=== PATIENT | male | born 1940 | race Caucasian/White ===

== ENCOUNTER 2017-03-16 13:30 | Inpatient (IN) | payer MEDICARE, OTHER ==
[2017-03-16] MEDS ORDERED: EPINEPHrine 1:10,000 1 MG/10 ML Syringe ONE (13:33)
[2017-03-16] MEDS ORDERED: Sodium Chloride 0.9% 1,000 ML IV ONE (13:55)
[2017-03-16] MEDS ORDERED: Sodium Chloride 0.9% 10 ML Syringe FLUSH PRN (13:55)
[2017-03-16 14:25] LABS: SODIUM,NA 134 mmol/L (138-146)
[2017-03-16 14:26] LABS: CHLORIDE,CL 96 mmol/L (98-109)
--- NOTE | 2017-03-16 14:31 | EDM.PDOC ---
ED HPI GENERAL MEDICAL PROBLEM - General Chief Complaint: CPR in Progress Stated Complaint: CODE BLUE Time Seen by Provider: 03/16/17 13:30 Source of Information: Reports: Patient, EMS, EMS Notes Reviewed, Family, RN, RN Notes Reviewed History Limitations: Reports: No Limitations - History of Present Illness INITIAL COMMENTS - FREE TEXT/NARRATIVE: Patient is brought to the ED at [facility] via EMS due to unresponsiveness and CPR in progress. According to patient's , her was working underneath the kitchen sink when he called out to her to help him up off the floor. When the arrive, she was unable to assist the patient up to his feet, so the patient laid on the floor for about one hour. The stated she tried to convince her to call EMS but he had refused twice. She states she finally ignored his request and call 911. Upon EMS arrival, patient was responsive and able to speak. EMS states once they started loading patient into the rig, patient became unresponsive. CPR initiated. Upon arrival, patient was unresponsive, pupils fixed and dilated, no responsive to any stimuli, no spontaneous breathing. Patient did not have a pulse, epi given with good results. Onset: Today Onset Date: 03/16/17 Onset Time: 11:45 ED ROS GENERAL - Review of Systems Review Of Systems: ROS reveals no pertinent complaints other than HPI. ED EXAM, CPR - Physical Exam Exam: See Below Limited By: Altered Mental Status, Unresponsive General Appearance: Obtunded, Severe Distress Eye Exam: Bilateral Eye: Abnormal Pupil (both pupils fixed and dilated) Head: Atraumatic, Normocephalic Respiratory Chest: No Accessory Muscle Use, Respiratory Distress Cardiovascular: Absent Heart Sounds, Pulse with Compression, CPR In Progress 0: Right Carotid, Left Carotid Extremities: Mottled, Pallor Neurological: Unresponsive Skin Exam: Cool, Cyanosis EKG INTERPRETATION EKG Date: 03/16/17 Time: 13:43 Rhythm: A-Flutter Rate (Beats/Min): 128 Wheeler: Normal P-Wave: Absent QRS: Wide ST-T: Elevated QT: Normal IA/PQ Interval: Absent Comparison: NA - No Prior EKG EKG Interpretation Comments: 1. Atrial flutter/Tachycardia with RVR with aberrant conduction or ventricular premature complexes 2. Moderate IVCD 3. ST elevation, probably early repolarization 4. Nonspecific ST & T abnormality Course - Orders/Labs/Meds Orders: Active Orders 24 hr Category Date Time Status EKG 12 Lead [EKG Documentation Completion] [RC] STAT Care 03/16/17 13:55 Active Insert Grijalva Catheter [Insert Urinary Catheter] [OM.PC] Care 03/16/17 14:00 Ordered Q24H Intubation [RT Airway Intubation] [RC] ASDIRECTED Care 03/16/17 13:54 Active RT Ventilator, Adult [RC] ASDIRECTED Care 03/16/17 14:21 Active Urinary Catheter Assessment [RC] ASDIRECTED Care 03/16/17 13:56 Active Chest 1V Frontal [CR] Routine Exams 03/16/17 13:40 Taken Head wo Cont [CT] Stat Exams 03/16/17 13:53 Taken Sodium Chloride 0.9% [Saline Flush] Med 03/16/17 13:55 Active 10 ml FLUSH ASDIRECTED PRN Peripheral IV Insertion Adult [OM.PC] Routine Oth 03/16/17 13:55 Ordered Medication Orders Sodium Chloride (Saline Flush) 10 ml FLUSH ASDIRECTED PRN PRN Reason: Keep Vein Open Labs: Laboratory Tests 03/16/17 03/16/17 03/16/17 Range/Units 13:33 13:33 13:33 WBC 11.1 H (4.0-10.0) x10^3/uL RBC 5.29 (4.5-6.0) x10^6/uL Hgb 16.8 (14.0-18.0) g/dL Hct 48.2 (40.0-52.0) % MCV 91.1 (78.0-93.0) fL MCH 31.8 (26.0-32.0) pg MCHC 34.9 (32.0-36.0) g/dL RDW Coeff of Kavita 12.2 (10.0-15.0) % Plt Count 269 (130-400) x10^3/uL Neut % (Auto) 69.8 (50.0-80.0) % Lymph % (Auto) 23.6 L (25.0-50.0) % Loving % (Auto) 5.7 (2.0-11.0) % Eos % (Auto) 0.7 (0.0-4.0) % Baso % (Auto) 0.2 (0.2-1.2) % PT 21.5 H (9.8-11.8) SEC INR 2.0 (2.0-3.5) APTT 30.1 (22.0-34.0) SEC D-Dimer, Quantitative 0.56 (<=0.58) mg/LFEU POC ABG pH (7.35-7.45) POC ABG pCO2 (35-45) mmHG POC ABG pO2 (80-105) mmHG POC ABG HCO3 (22-26) mmol/L POC ABG Total CO2 (23-27) mmol/L POC ABG O2 Sat (95-98) % POC ABG Base Excess (-2-3) mmol/L POC FiO2 POC Sodium (138-146) mmol/L Sodium 134 L (138-146) mmol/L POC Potassium (3.5-4.9) mmol/L Potassium 4.3 (3.5-4.9) mmol/L POC Chloride (98-109) mmol/L Chloride 96 L (98-109) mmol/L Carbon Dioxide 26 (24-29) mmol/L POC Total CO2 (24-29) mmol/L POC BUN (8-26) mg/dL BUN 9 (8-26) mg/dL Creatinine 0.7 (0.6-1.3) mg/dL POC Creatinine (0.6-1.3) mg/dL Est Cr Clr Drug Dosing TNP Estimated GFR (MDRD) > 60 Glucose 183 H (70-105) mg/dL POC Glucose (70-105) mg/dL Lactic Acid (0.4-2.0) mmol/L Calcium 8.6 (8.5-10.1) mg/dL Corrected Calcium 8.44 L (8.5-10.1) mg/dL Total Bilirubin 0.7 (0.2-1.0) mg/dL AST 27 (15-37) U/L ALT 28 (16-63) U/L Alkaline Phosphatase 64 (46-116) U/L Creatine Kinase 125 (39-308) U/L Creatine Kinase Index 1.9 (0.0-4.0) % CK-MB (CK-2) 2.4 (0.0-3.6) ng/mL POC Troponin I (0.00-0.08) ng/mL Troponin I Cancelled C-Reactive Protein < 0.2 (<=0.9) mg/dL Total Protein 8.1 (6.4-8.2) g/dL Albumin 4.2 (3.4-5.0) g/dL Globulin 3.9 g/dL Albumin/Globulin Ratio 1.08 POC Result Comm 03/16/17 03/16/17 03/16/17 Range/Units 13:33 13:41 13:42 WBC (4.0-10.0) x10^3/uL RBC (4.5-6.0) x10^6/uL Hgb (14.0-18.0) g/dL Hct (40.0-52.0) % MCV (78.0-93.0) fL MCH (26.0-32.0) pg MCHC (32.0-36.0) g/dL RDW Coeff of Kavita (10.0-15.0) % Plt Count (130-400) x10^3/uL Neut % (Auto) (50.0-80.0) % Lymph % (Auto) (25.0-50.0) % Loving % (Auto) (2.0-11.0) % Eos % (Auto) (0.0-4.0) % Baso % (Auto) (0.2-1.2) % PT (9.8-11.8) SEC INR (2.0-3.5) APTT (22.0-34.0) SEC D-Dimer, Quantitative (<=0.58) mg/LFEU POC ABG pH (7.35-7.45) POC ABG pCO2 (35-45) mmHG POC ABG pO2 (80-105) mmHG POC ABG HCO3 (22-26) mmol/L POC ABG Total CO2 (23-27) mmol/L POC ABG O2 Sat (95-98) % POC ABG Base Excess (-2-3) mmol/L POC FiO2 POC Sodium 134 L (138-146) mmol/L Sodium (138-146) mmol/L POC Potassium 4.3 (3.5-4.9) mmol/L Potassium (3.5-4.9) mmol/L POC Chloride 96 L (98-109) mmol/L Chloride (98-109) mmol/L Carbon Dioxide (24-29) mmol/L POC Total CO2 26 (24-29) mmol/L POC BUN 9 (8-26) mg/dL BUN (8-26) mg/dL Creatinine (0.6-1.3) mg/dL POC Creatinine 0.7 (0.6-1.3) mg/dL Est Cr Clr Drug Dosing Estimated GFR (MDRD) Glucose (70-105) mg/dL POC Glucose 183 H (70-105) mg/dL Lactic Acid 3.3 H (0.4-2.0) mmol/L Calcium (8.5-10.1) mg/dL Corrected Calcium (8.5-10.1) mg/dL Total Bilirubin (0.2-1.0) mg/dL AST (15-37) U/L ALT (16-63) U/L Alkaline Phosphatase (46-116) U/L Creatine Kinase (39-308) U/L Creatine Kinase Index (0.0-4.0) % CK-MB (CK-2) (0.0-3.6) ng/mL POC Troponin I 0.01 (0.00-0.08) ng/mL Troponin I C-Reactive Protein (<=0.9) mg/dL Total Protein (6.4-8.2) g/dL Albumin (3.4-5.0) g/dL Globulin g/dL Albumin/Globulin Ratio POC Result Comm 03/16/17 Range/Units 13:54 WBC (4.0-10.0) x10^3/uL RBC (4.5-6.0) x10^6/uL Hgb (14.0-18.0) g/dL Hct (40.0-52.0) % MCV (78.0-93.0) fL MCH (26.0-32.0) pg MCHC (32.0-36.0) g/dL RDW Coeff of Kavita (10.0-15.0) % Plt Count (130-400) x10^3/uL Neut % (Auto) (50.0-80.0) % Lymph % (Auto) (25.0-50.0) % Loving % (Auto) (2.0-11.0) % Eos % (Auto) (0.0-4.0) % Baso % (Auto) (0.2-1.2) % PT (9.8-11.8) SEC INR (2.0-3.5) APTT (22.0-34.0) SEC D-Dimer, Quantitative (<=0.58) mg/LFEU POC ABG pH 7.272 L* (7.35-7.45) POC ABG pCO2 51 H (35-45) mmHG POC ABG pO2 337 H (80-105) mmHG POC ABG HCO3 24 (22-26) mmol/L POC ABG Total CO2 25 (23-27) mmol/L POC ABG O2 Sat 100 H (95-98) % POC ABG Base Excess -3 L (-2-3) mmol/L POC FiO2 0.90 POC Sodium (138-146) mmol/L Sodium (138-146) mmol/L POC Potassium (3.5-4.9) mmol/L Potassium (3.5-4.9) mmol/L POC Chloride (98-109) mmol/L Chloride (98-109) mmol/L Carbon Dioxide (24-29) mmol/L POC Total CO2 (24-29) mmol/L POC BUN (8-26) mg/dL BUN (8-26) mg/dL Creatinine (0.6-1.3) mg/dL POC Creatinine (0.6-1.3) mg/dL Est Cr Clr Drug Dosing Estimated GFR (MDRD) Glucose (70-105) mg/dL POC Glucose (70-105) mg/dL Lactic Acid (0.4-2.0) mmol/L Calcium (8.5-10.1) mg/dL Corrected Calcium (8.5-10.1) mg/dL Total Bilirubin (0.2-1.0) mg/dL AST (15-37) U/L ALT (16-63) U/L Alkaline Phosphatase (46-116) U/L Creatine Kinase (39-308) U/L Creatine Kinase Index (0.0-4.0) % CK-MB (CK-2) (0.0-3.6) ng/mL POC Troponin I (0.00-0.08) ng/mL Troponin I C-Reactive Protein (<=0.9) mg/dL Total Protein (6.4-8.2) g/dL Albumin (3.4-5.0) g/dL Globulin g/dL Albumin/Globulin Ratio POC Result Comm Called critical res Meds: Medications Generic Name Dose Route Start Last Admin Trade Name Freq PRN Reason Stop Dose Admin Sodium Chloride 10 ml 03/16/17 13:55 Saline Flush FLUSH ASDIRECTED PRN Keep Vein Open Discontinued Medications Generic Name Dose Route Start Last Admin Trade Name Freq PRN Reason Stop Dose Admin Sodium Chloride 1,000 mls @ 1,000 mls/hr 03/16/17 13:55 Normal Saline IV 03/16/17 14:54 ONETIME ONE - Radiology Interpretation Free Text/Narrative:: CXR: Satisfactory ET tube position, though the tube could be safely pulled back approximately 1cm CT Head: 1. Probable hypertensive posterior fossa cerebellar intraparenchymal hemorrhage with intraventricular and subaracnoid extension. 2. Obstructive Hydrocephalus 3. Upward Transtentorial herniation 4. Secondary ischemic changes upon the posterior fossa vessels Departure - Departure Time of Disposition: 15:41 Disposition: Refer to Observation Condition: Critical Clinical Impression: Hemorrhage of brainstem with loss of consciousness, Obstructive hydrocephalus, Transtentorial herniation, Intraparenchymal hemorrhage of brain - Discharge Information ED Communication - ED Communication Date/Time Date: 03/16/17 Time Called: 14:48 - Discussed Case With (1) Discussed Case With (1): Inpatient Finisher Machine (Dr. Bird, Neurosurgeon, [facility]) - Conversation Summary Patient Aware of Amendments fo Care Plan: Yes Patient's POA/Guardian Aware of Amendments to Care Plan: Yes Summary Comment: Discussed case with Dr. Bird, Neurosurgeon. Patient is not a candidate for any neurological intervention due to extension of bleed into brainstem. - Problem List & Annotations (1) Hemorrhage of brainstem with loss of consciousness SNOMED Code(s): 15256183, 855493840 Code(s): S06.389A - CONTUS/LAC/HEM BRAINSTEM W LOC OF UNSP DURATION, INIT Status: Acute Priority: High Current Visit: Yes Onset Date: ~03/16/17 (2) Obstructive hydrocephalus SNOMED Code(s): 791014513, 888744200 Code(s): G91.1 - OBSTRUCTIVE HYDROCEPHALUS Status: Acute Priority: High Current Visit: Yes Onset Date: ~03/16/17 (3) Transtentorial herniation SNOMED Code(s): 359546718 Code(s): G93.5 - COMPRESSION OF BRAIN Status: Acute Priority: High Current Visit: Yes Onset Date: ~03/16/17 (4) Intraparenchymal hemorrhage of brain SNOMED Code(s): 135607994 Code(s): I61.9 - NONTRAUMATIC INTRACEREBRAL HEMORRHAGE, UNSPECIFIED Status : Acute Priority: High Current Visit: Yes Onset Date: ~03/16/17 - Problem List Review Problem List Initiated/Reviewed/Updated: Yes - My Orders Last 24 Hours: My Active Orders 03/16/17 13:40 Chest 1V Frontal [CR] Routine 03/16/17 13:53 Head wo Cont [CT] Stat 03/16/17 13:54 Intubation [RT Airway Intubation] [RC] ASDIRECTED 03/16/17 13:55 EKG 12 Lead [EKG Documentation Completion] [RC] STAT Sodium Chloride 0.9% [Saline Flush] 10 ml FLUSH ASDIRECTED PRN Peripheral IV Insertion Adult [OM.PC] Routine 03/16/17 13:56 Urinary Catheter Assessment [RC] ASDIRECTED 03/16/17 14:00 Insert Grijalva Catheter [Insert Urinary Catheter] [OM.PC] Q24H 03/16/17 14:21 RT Ventilator, Adult [RC] ASDIRECTED - Assessment/Plan Admission H&P: Please use this note as an admission H&P Last 24 Hours: My Active Orders 03/16/17 13:40 Chest 1V Frontal [CR] Routine 03/16/17 13:53 Head wo Cont [CT] Stat 03/16/17 13:54 Intubation [RT Airway Intubation] [RC] ASDIRECTED 03/16/17 13:55 EKG 12 Lead [EKG Documentation Completion] [RC] STAT Sodium Chloride 0.9% [Saline Flush] 10 ml FLUSH ASDIRECTED PRN Peripheral IV Insertion Adult [OM.PC] Routine 03/16/17 13:56 Urinary Catheter Assessment [RC] ASDIRECTED 03/16/17 14:00 Insert Grijalva Catheter [Insert Urinary Catheter] [OM.PC] Q24H 03/16/17 14:21 RT Ventilator, Adult [RC] ASDIRECTED
[2017-03-16] MEDS ORDERED: Acetaminophen 650 MG Supp RECTAL PRN (16:54)
[2017-03-16] MEDS ORDERED: Atropine 1% Ophth Soln 5 ML BOTTLE SL PRN (16:54)
[2017-03-16] MEDS ORDERED: Ondansetron 4 MG/2 ML SDV IVPUSH PRN (16:54)
[2017-03-16] MEDS ORDERED: LORazepam 2 MG/ML SDV IV PRN (17:03)
[2017-03-16] MEDS ORDERED: Lidocaine 2% Viscous Solution 15 ML Cup PO PRN (17:03)
[2017-03-16] MEDS ORDERED: Morphine 10 MG/ML Syringe IV PRN (17:03)
--- NOTE | 2017-03-16 23:43 | PCM.HP ---
H&P History of Present Illness - General Date of Service: 03/16/17 Admit Problem/Dx: Admission Diagnosis/Problem Admission Diagnosis/Problem Intraparenchymal hemorrhage of brain Obstructive Hydrocephalus Transtentorial Hemorrhage Source of Information: EMS, EMS Notes Reviewed, Family, RN, RN Notes Reviewed History Limitations: Reports: Altered Mental Status - History of Present Illness Initial Comments - Free Text/Narative: Patient was brought to the emergency room at [facility] via EMS for a possible stroke. According to the patient's , the patient was underneath the kitchen sink trying to fix the plumbing, the states that her called out for help to get up off the floor. The states that she was unable to help her off the floor. She recommended to her that they should call 911 which the patient refused. The states that the patient sat on the kitchen floor for almost an hour before 911 was called. Upon arrival of EMS, the EMS personnel state the patient was alert and had equal hand grasp. The EMS personnel state that as they were loading the patient into the ambulance rig, the patient went unresponsive and respiratory arrested. CPR was started immediately. Upon arrival to the emergency room the patient was being bagged and manual chest compressions were being performed. The patient did not have a pulse upon arrival so one epinephrine was given with good success. The patient was intubated immediately. Once adequate airway was achieved CPR was stopped. The patient maintained a heart rate in the 60s and 70s but did have a low blood pressure in the 60s to 70s. A phone call was made to the neurosurgeon Dr Bird, at [facility] who reviewed the CAT scan of the brain. According to the neurosurgeon the patient had a posterior fossa infarct into the brainstem. The patient was also found to have obstructive hydrocephalus as well as tentorial hemorrhage. The neurosurgeon advised the patient was not a surgical candidate. Patient was therefore admitted to acute status at [facility]. Onset of Symptoms: Reports: Today Symptom Onset Date: 03/16/17 Symptom Onset Time: 11:45 - Related Data Allergies/Adverse Reactions: Allergies Allergy/AdvReac Type Severity Reaction Status Date / Time No Known Allergies Allergy Verified 03/16/17 18:11 Past Medical History - History Comment History Comment: Unable to obtain PMH as PCP office closed at time of this dictation Social & Family History - Family History Family Medical History: Noncontributory - Tobacco Use Smoking Status *Q: Never Smoker Tobacco Use Within Last Twelve Months: No Used Tobacco, but Quit: No - Living Situation & Occupation Living situation: Reports: , with Spouse Occupation: Retired H&P Review of Systems - Review of Systems: Review Of Systems: ROS reveals no pertinent complaints other than HPI. Exam - Exam Exam: See Below - Vital Signs Vital Signs: Last Vital Signs Temp 36.2 C 03/16/17 22:00 Pulse 59 L 03/16/17 22:00 Resp 18 03/16/17 22:00 BP 88/54 L 03/16/17 22:00 Pulse Ox 100 03/16/17 22:00 - Exam Quality Assessment: Supplemental Oxygen General: Other (Unresponsive on ventilator) HEENT: Abnormal Pupils (fixed and dilated) Lungs: Clear to Auscultation (on ventilator) Cardiovascular: Regular Rate, Regular Rhythm GI/Abdominal Exam: Soft, Non-Tender, Abnormal Bowel Sounds (Hypoactive) Extremities: Mottled Peripheral Pulses: 1+: Radial (L), Radial (R) Skin: Warm, Dry, Intact Neuro Extensive - Mental Status: No: Opens Eyes to Commands, Withdraws to Pain Neuro Extensive - Motor, Sensory, Reflexes: Abnormal Reflexes Physical Exam Comments:: Patient currently on ventilator and unresponsive. The patient does not withdraw to pain. The patient does not respond to obnoxious stimuli. The patient does not follow any commands. The patient's pupils are fixed and dilated. The patient does not have a gag response. The patient does have a spontaneous heart rate. The patient's respiratory status is being assisted by the ventilator. The patient is not on any sedation and has not been given any during his entire hospital course. - Patient Data Result Diagrams: 03/16/17 13:33 03/16/17 13:33 *Q Meaningful Use (ADM) - VTE *Q VTE Criteria *Q: Not Indicated due to patient's medical condition - Stroke *Q Stroke Criteria *Q: - AMI *Q AMI Criteria *Q: - Problem List (1) Hemorrhage of brainstem with loss of consciousness SNOMED Code(s): 97666989, 662630943 ICD Code: S06.389A - CONTUS/LAC/HEM BRAINSTEM W LOC OF UNSP DURATION, INIT Status: Acute Priority: High Current Visit: Yes Onset Date: ~03/16/17 (2) Obstructive hydrocephalus SNOMED Code(s): 020902904, 061519684 ICD Code: G91.1 - OBSTRUCTIVE HYDROCEPHALUS Status: Acute Priority: High Current Visit: Yes Onset Date: ~03/16/17 (3) Transtentorial herniation SNOMED Code(s): 155430658 ICD Code: G93.5 - COMPRESSION OF BRAIN Status: Acute Priority: High Current Visit: Yes Onset Date: ~03/16/17 (4) Intraparenchymal hemorrhage of brain SNOMED Code(s): 688679872 ICD Code: I61.9 - NONTRAUMATIC INTRACEREBRAL HEMORRHAGE, UNSPECIFIED Status : Acute Priority: High Current Visit: Yes Onset Date: ~03/16/17 (5) Syncope SNOMED Code(s): 428152318 ICD Code: R55 - SYNCOPE AND COLLAPSE Status: Acute Priority: Medium Current Visit: Yes Onset Date: ~03/16/17 Qualifiers: Syncope type: unspecified Qualified Code(s): R55 - Syncope and collapse Problem List Initiated/Reviewed/Updated: Yes Orders Last 24hrs: Active Orders 24 hr Category Date Time Status Patient Status [ADT] Routine ADT 03/16/17 16:55 Active Bedrest [RC] ASDIRECTED Care 03/16/17 16:55 Active Height and Weight [RC] UPON Care 03/16/17 16:55 Active Telemetry Monitoring [Cardiac Monitoring] [RC] 06,,14 Care 03/16/17 16:00 Active ,18,22,02 Turn and Reposition [RC] Q2H Care 03/16/17 16:56 Active Vital Signs [RC] 06,10,14,18,22,02 Care 03/16/17 16:54 Active Respiratory Care Assess and Treatment [CONS] Routine Cons 03/16/17 16:55 Active Nothing Per Oral Diet [DIET] Diet 03/16/17 Dinner Active BLOOD GAS ARTERIAL [BG] Routine Lab 03/17/17 05:11 Ordered Acetaminophen [Tylenol] Med 03/16/17 16:54 Active 650 mg RECTAL Q3H PRN Atropine 1% [Atropine 1% Ophth Soln] Med 03/16/17 16:54 Active See Dose Instructions SL Q2H PRN LORazepam [Ativan] Med 03/16/17 17:03 Active 1 mg IV Q4H PRN Lidocaine 2% [Xylocaine 2% Viscous] Med 03/16/17 17:03 Active 5 ml PO Q4H PRN Morphine Med 03/16/17 17:03 Active 10 mg IV Q1H PRN Ondansetron [Zofran] Med 03/16/17 16:54 Active 4 mg IVPUSH Q4H PRN RT Suction Nasopharyngeal [RESPCARE] Routine Oth 03/16/17 16:54 Active Resuscitation Status Routine Resus Stat 03/16/17 16:54 Ordered Medication Orders Acetaminophen (Tylenol) 650 mg RECTAL Q3H PRN PRN Reason: Pain/Fever Atropine Sulfate (Atropine 1% Ophth Soln) 0 ml SL Q2H PRN PRN Reason: Copius Secretions Lidocaine HCl (Xylocaine 2% Viscous) 5 ml PO Q4H PRN PRN Reason: Pain Lorazepam (Ativan) 1 mg IV Q4H PRN PRN Reason: Restlessness or Anxiety Morphine Sulfate (Morphine) 10 mg IV Q1H PRN PRN Reason: Respiratory Distress Ondansetron HCl (Zofran) 4 mg IVPUSH Q4H PRN PRN Reason: Nausea Sodium Chloride (Saline Flush) 10 ml FLUSH ASDIRECTED PRN PRN Reason: Keep Vein Open Assessment/Plan Comment:: 76-year-old male patient with an unknown past medical history is admitted to the acute care floor at [facility] for posterior fossa hemorrhage with herniation into the brainstem, obstructive hydrocephalus, transtentorial hemorrhage. The acute health status of the patient was thoroughly and extensively discussed with the patient's and daughter who were at bedside. The requested the patient not be transferred to any outside facility. The has requested end-of-life cares in this facility. The patient's would like the patient to stay intubated until the appropriate family members have been notified and have been able to visit the patient. The patient is a full code 2. DVT prophylaxis is not indicated. The patient currently does not require any sedation as he is unresponsive. The patient will remain on the ventilator until such time as warranted for extubation. The agrees with the plan of care and wishes to proceed.
--- NOTE | 2017-03-17 17:40 | PCM.PN ---
- General Info Date of Service: 03/17/17 Admission Dx/Problem (Free Text): Admission Diagnosis/Problem Admission Diagnosis/Problem Intraparenchymal hemorrhage of brain Obstructive Hydrocephalus Transtentorial Hemorrhage - Review of Systems Systems Review Comment:: Unable to assess; patient is unresponsive and comatose on the ventilator - Patient Data Vitals - Most Recent: Last Vital Signs Temp 36.2 C 03/17/17 10:00 Pulse 61 03/17/17 10:00 Resp 12 03/17/17 10:00 BP 59/40 L 03/17/17 10:00 Pulse Ox 98 03/17/17 10:00 I&O - Last 24 Hours: Intake & Output 03/17/17 03/17/17 03/17/17 06:59 14:59 22:59 Output Total 0 Balance 0 Lab Results Last 24 Hours: Laboratory Results - last 24 hr 03/17/17 Range/Units 07:00 POC ABG pH 7.449 (7.35-7.45) POC ABG pCO2 36 (35-45) mmHG POC ABG pO2 118 H (80-105) mmHG POC ABG HCO3 25 (22-26) mmol/L POC ABG Total CO2 26 (23-27) mmol/L POC ABG O2 Sat 99 H (95-98) % POC ABG Base Excess 1 (-2-3) mmol/L POC FiO2 1.00 Med Orders - Current: Current Medications Acetaminophen (Tylenol) 650 mg RECTAL Q3H PRN PRN Reason: Pain/Fever Atropine Sulfate (Atropine 1% Ophth Soln) 0 ml SL Q2H PRN PRN Reason: Copius Secretions Lidocaine HCl (Xylocaine 2% Viscous) 5 ml PO Q4H PRN PRN Reason: Pain Lorazepam (Ativan) 1 mg IV Q4H PRN PRN Reason: Restlessness or Anxiety Last Admin: 03/17/17 17:32 Dose: 1 mg Morphine Sulfate (Morphine) 10 mg IV Q1H PRN PRN Reason: Respiratory Distress Last Admin: 03/17/17 17:24 Dose: 10 mg Ondansetron HCl (Zofran) 4 mg IVPUSH Q4H PRN PRN Reason: Nausea Sodium Chloride (Saline Flush) 10 ml FLUSH ASDIRECTED PRN PRN Reason: Keep Vein Open Discontinued Medications Sodium Chloride (Normal Saline) 1,000 mls @ 1,000 mls/hr IV ONETIME ONE Stop: 03/16/17 14:54 Last Admin: 03/16/17 18:12 Dose: Not Given - Exam Quality Assessment: Supplemental Oxygen General: No Acute Distress, Other (Comatose; Unresponsive) HEENT: Other (Pupils fixed and dilated) Lungs: Clear to Auscultation (on ventilator) Cardiovascular: Regular Rate, Regular Rhythm GI/Abdominal Exam: Soft, Abnormal Bowel Sounds (Absent) Peripheral Pulses: 1+: Radial (L), Radial (R) Skin: Warm, Dry, Intact Neurological: Other (Comatose; Unresponsive on ventilator) - Problem List & Annotations (1) Hemorrhage of brainstem with loss of consciousness SNOMED Code(s): 56379495, 591668118 Code(s): S06.389A - CONTUS/LAC/HEM BRAINSTEM W LOC OF UNSP DURATION, INIT Status: Acute Priority: High Current Visit: Yes Onset Date: ~03/16/17 (2) Obstructive hydrocephalus SNOMED Code(s): 423728623, 124880803 Code(s): G91.1 - OBSTRUCTIVE HYDROCEPHALUS Status: Acute Priority: High Current Visit: Yes Onset Date: ~03/16/17 (3) Transtentorial herniation SNOMED Code(s): 717690639 Code(s): G93.5 - COMPRESSION OF BRAIN Status: Acute Priority: High Current Visit: Yes Onset Date: ~03/16/17 (4) Intraparenchymal hemorrhage of brain SNOMED Code(s): 665171346 Code(s): I61.9 - NONTRAUMATIC INTRACEREBRAL HEMORRHAGE, UNSPECIFIED Status : Acute Priority: High Current Visit: Yes Onset Date: ~03/16/17 (5) Syncope SNOMED Code(s): 833854454 Code(s): R55 - SYNCOPE AND COLLAPSE Status: Acute Priority: Medium Current Visit: Yes Onset Date: ~03/16/17 Qualifiers: Syncope type: unspecified Qualified Code(s): R55 - Syncope and collapse (6) Comatose SNOMED Code(s): 860654498 Code(s): R40.20 - UNSPECIFIED COMA Status: Acute Current Visit: Yes Qualifiers: Coma depth: Lindsey coma 3-8 Coma timing: at hospital admission Qualified Code(s): R40.8853 - Lindsey coma scale score 3-8, at hospital admission - Problem List Review Problem List Initiated/Reviewed/Updated: Yes - My Orders Last 24 Hours: My Active Orders 03/16/17 16:54 Vital Signs [RC] 06,10,14,18,22,02 Acetaminophen [Tylenol] 650 mg RECTAL Q3H PRN Atropine 1% [Atropine 1% Ophth Soln] See Dose Instructions SL Q2H PRN Ondansetron [Zofran] 4 mg IVPUSH Q4H PRN RT Suction Nasopharyngeal [RESPCARE] Routine Resuscitation Status Routine 03/16/17 16:55 Patient Status [ADT] Routine Bedrest [RC] ASDIRECTED Height and Weight [RC] .PRN Respiratory Care Assess and Treatment [CONS] Routine 03/16/17 16:56 Turn and Reposition [RC] Q2H 03/16/17 17:03 LORazepam [Ativan] 1 mg IV Q4H PRN Lidocaine 2% [Xylocaine 2% Viscous] 5 ml PO Q4H PRN Morphine 10 mg IV Q1H PRN 03/16/17 Dinner Nothing Per Oral Diet [DIET] 03/17/17 07:17 RT Ventilator, Adult [RC] ASDIRECTED - Plan Plan:: 76-year-old male patient with an unknown past medical history is admitted to the acute care floor at [facility] for posterior fossa hemorrhage with herniation into the brainstem, obstructive hydrocephalus, transtentorial hemorrhage. The acute health status of the patient was thoroughly and extensively discussed today with the patient's and daughter who were at bedside. The continues to request the patient not be transferred to any outside facility. The has requested end-of-life cares in this facility. The patient's would like the patient to stay intubated until the appropriate family members have been notified and have been able to visit the patient today. The patient is a full code 2. DVT prophylaxis is not indicated. The patient currently does not require any sedation as he is unresponsive and comatose. The patient will remain on the ventilator until such time as warranted for extubation. The agrees with the plan of care and wishes to proceed. At time of this dictation, still awaiting on family members to return. Discussed with patient will be extubated once all family members are present. agrees
--- NOTE | 2017-03-17 17:47 | PCM.PRNOTE ---
- Free Text/Narrative Note: 03/17/2017 17:20 Patient given 10mg IV Morphine; Balloon of ET tube deflated and ETT withdrawn without difficulty. Ventilator turned off per RN. No spontaneous respiratory effort by patient. No breath sounds heard on auscultation. Patient placed on 2L NC for comfort. No complications with extubation.
--- NOTE | 2017-03-17 18:30 | PCM.DCSUM1 ---
Discharge Summary - Hospital Course HPI Initial Comments: See progress note from 03/17/2017 - Discharge Data Discharge Date: 03/17/17 Discharge Disposition: 20 Preliminary Cause of *Q: Respiratory Failure Event(s) Leading to Patient's *Q: Acute hemorrhagic stroke Condition: - Discharge Diagnosis/Problem(s) (1) Hemorrhage of brainstem with loss of consciousness SNOMED Code(s): 72909249, 825651165 ICD Code: S06.389A - CONTUS/LAC/HEM BRAINSTEM W LOC OF UNSP DURATION, INIT Status: Acute Priority: High Onset Date: ~03/16/17 (2) Obstructive hydrocephalus SNOMED Code(s): 460721833, 157635451 ICD Code: G91.1 - OBSTRUCTIVE HYDROCEPHALUS Status: Acute Priority: High Onset Date: ~03/16/17 (3) Transtentorial herniation SNOMED Code(s): 821981260 ICD Code: G93.5 - COMPRESSION OF BRAIN Status: Acute Priority: High Onset Date: ~03/16/17 (4) Intraparenchymal hemorrhage of brain SNOMED Code(s): 639136536 ICD Code: I61.9 - NONTRAUMATIC INTRACEREBRAL HEMORRHAGE, UNSPECIFIED Status : Acute Priority: High Onset Date: ~03/16/17 (5) Syncope SNOMED Code(s): 054468513 ICD Code: R55 - SYNCOPE AND COLLAPSE Status: Acute Priority: Medium Onset Date: ~03/16/17 Qualifiers: Syncope type: unspecified Qualified Code(s): R55 - Syncope and collapse (6) Comatose SNOMED Code(s): 702054764 ICD Code: R40.20 - UNSPECIFIED COMA Status: Acute Qualifiers: Coma depth: Lindsey coma 3-8 Coma timing: at hospital admission Qualified Code(s): R40.2433 - Barbeau coma scale score 3-8, at hospital admission (7) Cardiopulmonary arrest SNOMED Code(s): 843055200 ICD Code: I46.9 - CARDIAC ARREST, CAUSE UNSPECIFIED Status: Acute Onset Date: ~03/17/17 - Patient Summary/Data Operative Procedure(s) Performed: None Consults: Consultations 03/16/17 16:55 Respiratory Care Assess and Treatment [CONS] Routine Labs Pending at D/C: None Hospital Course: Patient was admitted on 03/16/2017 for an acute stroke (see H&P). Patient was intubated in ED and transferred to the floor so family could be with patient prior to extubated. Patient was not a surgical candidate. Patient was extubated at 17:20 and at 17:45 on 03/17/2017. Patient pronounced at 17:45 on 03/17/2017. - Discharge Plan - Discharge Summary/Plan Comment DC Time >30 min.: No - General Info Date of Service: 03/17/17 Admission Dx/Problem (Free Text: Admission Diagnosis/Problem Admission Diagnosis/Problem Intraparenchymal hemorrhage of brain Obstructive Hydrocephalus Transtentorial Hemorrhage - Review of Systems Systems Review Comment: Unable to assess - Patient Data Vitals - Most Recent: Last Vital Signs Temp 36.2 C 03/17/17 10:00 Pulse 61 03/17/17 10:00 Resp 12 03/17/17 10:00 BP 59/40 L 03/17/17 10:00 Pulse Ox 98 03/17/17 10:00 I&O - Last 24 hours: Intake & Output 03/17/17 03/17/17 03/17/17 06:59 14:59 22:59 Output Total 0 Balance 0 Lab Results - Last 24 hrs: Laboratory Results - last 24 hr 03/17/17 Range/Units 07:00 POC ABG pH 7.449 (7.35-7.45) POC ABG pCO2 36 (35-45) mmHG POC ABG pO2 118 H (80-105) mmHG POC ABG HCO3 25 (22-26) mmol/L POC ABG Total CO2 26 (23-27) mmol/L POC ABG O2 Sat 99 H (95-98) % POC ABG Base Excess 1 (-2-3) mmol/L POC FiO2 1.00 Med Orders - Current: Current Medications Discontinued Medications Acetaminophen (Tylenol) 650 mg RECTAL Q3H PRN PRN Reason: Pain/Fever Atropine Sulfate (Atropine 1% Ophth Soln) 0 ml SL Q2H PRN PRN Reason: Copius Secretions Sodium Chloride (Normal Saline) 1,000 mls @ 1,000 mls/hr IV ONETIME ONE Stop: 03/16/17 14:54 Last Admin: 03/16/17 18:12 Dose: Not Given Lidocaine HCl (Xylocaine 2% Viscous) 5 ml PO Q4H PRN PRN Reason: Pain Lorazepam (Ativan) 1 mg IV Q4H PRN PRN Reason: Restlessness or Anxiety Last Admin: 03/17/17 17:32 Dose: 1 mg Morphine Sulfate (Morphine) 10 mg IV Q1H PRN PRN Reason: Respiratory Distress Last Admin: 03/17/17 17:24 Dose: 10 mg Ondansetron HCl (Zofran) 4 mg IVPUSH Q4H PRN PRN Reason: Nausea Sodium Chloride (Saline Flush) 10 ml FLUSH ASDIRECTED PRN PRN Reason: Keep Vein Open - Exam General: Reports: Other (comatose) Lungs: Reports: Other (No spontaneous respiratory effort; no breath sounds auscultated) Cardiovascular: Reports: Other (No palpable pulse; no spontaneous heart beat) Neurological: Reports: Other (No response to obnoxious stimuli) *Q Meaningful Use (DIS) - VTE *Q VTE Criteria *Q: No applicable - Stroke *Q Stroke Criteria *Q: - AMI *Q AMI Criteria *Q:
--- NOTE | 2017-03-18 08:21 | PROC ---
TITLE: Intubation note due to CPR. INDICATIONS: I was called to the emergency room for the patient who is undergoing CPR and wanted immediate intubation. PROCEDURE: When I arrived, the patient was being ambued with active cardiac compressions. I assembled the necessary equipment including an 8.5 endotracheal tube, checked the balloon, assembled the GlideScope with a large handle. At that point, the oropharynx was prepped x2 with ChloraPrep. I then inserted the GlideScope and visualized the cords. I advanced an 8.5 endotracheal tube with rigid stylet in through the glottic opening. I advanced until the balloon was through the cords. At that point, stylet was removed. The balloon was then inflated to 10 mL. The end-tidal CO2 was connected with positive end-tidal CO2, opening reading being 37. CPR continued throughout. The tube was secured at 25 cm at the teeth. Portable chest x-ray was obtained. Breath sounds were positive bilaterally and negative epigastric. Care of the patient was turned over to Respiratory Therapy for bagging and the Code Team for continued care for the CPR. Thank you very much for this consult. CK: 03/16/2017 13:41:49 MODL: 03/16/2017 19:18:05 /[id number]
== END 2017-03-17 17:45 | disposition expired | DRG 64 ==
LOC: VM.ED 13:30 → VM.MS 15:39
PROVIDERS: ADMIT Nurse Practitioner Family; ATTEND Nurse Practitioner Family
PROC: 5A1945Z Respiratory Ventilation, 24-96 Consecutive Hours (ICD-10-PCS; principal; 2017-03-16)
DX: I61.3 Nontraumatic intracerebral hemorrhage in brain stem (principal); G93.5 Compression of brain; G91.1 Obstructive hydrocephalus; I46.9 Cardiac arrest, cause unspecified; R40.20 Unspecified coma; Z51.5 Encounter for palliative care
CPT/HCPCS: 31500; 36600; 70450; 71010; 80047; 80053; 82550; 82553; 82803; 83605; 84484; 85025; 85379; 85610; 85730; 86140; 93005; 94002; 94003; 94760; 96361; 96374; 99284-GF-25; 99291; 99292; A9270-GY; J0171; J2060; J2270; J7030